=== PATIENT | female | born 1980 | race American Indian/Alaskan Native ===

== ENCOUNTER 2018-06-02 12:07 | Outpatient (CLI) | payer BC ==
--- NOTE | 2018-06-02 13:39 | Ultrasound Report ---
ULTRASOUND THYROID SCAN History: Nontoxic goiter. Technique: Grayscale ultrasound with color Doppler interrogation. Findings: The thyroid gland is borderline enlarged. The right lobe measures 5.1 x 1.7 x 1.9 cm. The left lobe measures 5.4 x 1.5 x 2.1 cm. The isthmus measures 0.2 cm. A 4 mm benign-appearing hypoechoic nodule is noted the superior right thyroid lobe. A similar-appearing 4 mm hypoechoic nodule is identified in the mid left thyroid gland. Impression: Borderline thyroid size. There are solitary tiny hypoechoic benign-appearing thyroid nodules bilaterally. No suspicious nodule. Consider surveillance.
== END 2018-06-02 12:08 | disposition home or self-care (01) ==
LOC: US 12:07
PROVIDERS: ATTEND Family Medicine
DX: E04.2 Nontoxic multinodular goiter (principal)
CPT/HCPCS: 76536

== ENCOUNTER 2020-02-26 08:59 | Outpatient (CLI) | payer BC ==
--- NOTE | 2020-02-26 10:14 | Ultrasound Report ---
ULTRASOUND ABDOMEN, COMPLETE INDICATION: Right upper quadrant pain. COMPARISON: None available. FINDINGS: Pancreas: Normal. Abdominal Aorta: Normal. IVC: Normal. Liver: Normal. Gallbladder: Mild gallbladder sludge versus artifact. Bile ducts: Normal. Common Bile Duct measures 3.1 mm. Right Kidney: Normal. Left Kidney: Normal. Spleen: Normal. Free fluid: None. Additional Findings: None. IMPRESSION: 1. Negative for gallstones or biliary dilatation. 2. Mild sludge versus artifact. Signer Name: Maximus Duncan MD Signed: 02/26/2020 10:10 AM Workstation Name: [id number]
== END 2020-02-26 09:00 | disposition home or self-care (01) ==
LOC: US 08:59
PROVIDERS: ATTEND Internal Medicine
DX: R10.9 Unspecified abdominal pain (principal)
CPT/HCPCS: 76700

== ENCOUNTER 2020-04-08 07:17 | Day surgery (SDC) | payer BC ==
[~2020-04-08 07:17] MED LIST: SODIUM CHLORIDE 0.9% 1000 ML 1,000 ML IV SCH
[2020-04-08] MEDS ORDERED: WATER FOR IRRIG STERILE 1,000 ML BOTTLE ONE (07:53)
--- NOTE | 2020-04-08 08:02 | Anesthesia Consultation ---
Anesthesia Consult and Med Hx Date of service: 04/08/20 - Airway Anesthetic Teeth Evaluation: Good ROM Head & Neck: Adequate Mental/Hyoid Distance: Adequate Mallampati Class: Class II Intubation Access Assessment: Probably Good - Pre-Operative Health Status ASA Pre-Surgery Classification: ASA1 Proposed Anesthetic Plan: MAC - Pulmonary Hx Smoking: No Hx Asthma: No Hx Respiratory Symptoms: No SOB: No COPD: No Home Oxygen Therapy: No Hx Pneumonia: No Hx Sleep Apnea: No - Cardiovascular System Hx Hypertension: No Hx Coronary Artery Disease: No Hx Heart Attack/AMI: No Hx Angina: No Hx Percutaneous Transluminal Coronary Angioplasty (PTCA): No Hx Cardia Arrhythmia: No Hx Pacemaker: No Hx Internal Defibrillator: No Hx Valvular Heart Disease: No Hx Heart Murmur: No Hx Peripheral Vascular Disease: No - Central Nervous System Hx Neuromuscular Disorder: No Hx Seizures: No CVA: No Hx Back Pain: No Hx Psychiatric Problems: No - Gastrointestinal Hx Ulcer: No Hx Gastroesophageal Reflux Disease: Yes (disphagea) - Endocrine Hx Renal Disease: No Hx End Stage Renal Disease: No Hx Cirrhosis: No Hx Liver Disease: No Hx Insulin Dependent Diabetes: No Hx Non-Insulin Dependent Diabetes: No Hx Thyroid Disease: No Hx Hypothyroidism: No Hx Hyperthyroidism: No - Hematic Hx Anemia: No Hx Sickle Cell Disease: No - Other Systems Hx Alcohol Use: No Hx Substance Use: No Hx Cancer: No Hx Obesity: Yes (BMI-36.5)
--- NOTE | 2020-04-08 08:03 | Anesthesia Day of Surgery ---
Anesthesia Day of Surgery - Day of Surgery Patient Examined: Yes Patient H&P Reviewed: Yes Patient is NPO: Yes
[2020-04-08] MEDS ORDERED: propofoL 200 MG/20 ML VIAL IV ONE (08:30)
[2020-04-08] MEDS ORDERED: LIDOCAINE MPF (2%) 20 MG/1 ML VIAL 5 ML ONE (08:30)
[2020-04-08] MEDS ORDERED: fentaNYL 100 MCG/2 ML INJ ONE (08:30)
--- NOTE | 2020-04-08 08:58 | Procedure Note ---
Date of procedure: 04/08/20 Pre-op diagnosis: GERD and Abdominal Pain Post-op diagnosis: other (Mild to Moderate Erosive Esophagitis/ R/O Eosinophilic Esophagatis/ Gastritis and Gastric Nodules/R/O Celica Disease/ No Peptic Ulcer disease noted) Procedure: EGD with Biopsy Anesthesia: [facility] [place] Surgeon: COLEEN AUGUSTIN Estimated blood loss: minimal Pathology: list Specimen disposition: to lab Condition: stable Disposition: same day (Treat with PPI and prn Bentyl and encourage Probiotic use. Avoid aspirin and NSAID for 4 days. Follow up in 1 to 2 weeks ([phone]).)
--- NOTE | 2020-04-08 09:04 | Operative Report ---
PROCEDURE: Esophagogastroduodenoscopy with biopsy. INDICATIONS: This is a 39-year-old, slightly obese -Spanish female with a history of NSAID use, prior history of GERD symptoms. She has lately been having some abdominal pain and discomfort. EGD was done to assess for the severity of the erosive esophagitis and for any associated peptic ulcer disease. DESCRIPTION OF PROCEDURE: The procedure was done after getting informed consent with MAC anesthesia. Instrument was passed through the hypopharynx into the esophagus, which showed [id number]-on-[id number] erosive esophagitis. Stomach showed gastritis and some gastric nodules. No ulcers were noted in the straight or the retroverted view. The pylorus was patent. The duodenum in the first and second portion appeared normal. Biopsy was done from the second part of the duodenum to rule out for celiac disease. Additional biopsy was done from the gastric antrum, gastric body to rule out for H. pylori and atrophic gastritis and also biopsy was done from the distal to mid esophagus to assess for the severity of erosive esophagitis and any eosinophilic esophagitis. There was minimal bleeding associated with the procedure. No complications associated with the procedure. ASSESSMENT: Gastroesophageal reflux disease symptoms, abdominal pain, mild to moderate erosive esophagitis, gastritis, gastric nodule, rule out celiac disease. PLAN: To treat the patient with PPI, p.r.n. dose of Bentyl. I have encouraged the patient to take probiotics. Avoid aspirin and aspirin-related products for the next few days and follow up in the office in 1-2 weeks' time. The procedure was done in the GI lab with assistance of the GI lab team, which included RN, Marilyn Munoz; Tiago jean baptiste and with the assistance of anesthesia. JOB# [id number] XANDER/NIKOLAS
[2020-04-08 10:39] VITALS: BP 134/90
--- NOTE | 2020-04-08 16:49 | Post Anesthesia Evaluation ---
- Post Anesthesia Evaluation Patient Participated: Yes Airway Patent: Yes Stable Respiratory Function: Yes Nausea/Vomiting: No Temp > 96.8F: Yes Pain Manageable: Yes Adequeate Hydration: Yes Anesthesia Complications: No
== END 2020-04-08 07:18 | disposition home or self-care (01) ==
LOC: GIO 07:17
DX: K21.00 Gastro-esophageal reflux disease with esophagitis, without bleeding (principal); R10.9 Unspecified abdominal pain; K29.70 Gastritis, unspecified, without bleeding; E66.9 Obesity, unspecified; Z79.899 Other long term (current) drug therapy; Z68.38 Body mass index [BMI] 38.0-38.9, adult
CPT/HCPCS: 43239; 88305; 88342; J2704; J3010; J7030

== ENCOUNTER 2020-07-11 07:42 | Outpatient (CLI) | payer BC ==
[2020-07-11 08:36] LABS: Blood Urea Nitrogen 11 mg/dL (7-17)
--- NOTE | 2020-07-11 09:42 | Cat Scan Report ---
CT PELVIS WITH CONTRAST HISTORY: Question of left-sided hydrosalpinx versus cystic mass on outside imaging, here for further evaluation. COMPARISON: None. I do not have any outside imaging available for comparison. TECHNIQUE: CT images of the pelvis were obtained following administration of intravenous contrast. A ll CT scans at this location are performed using CT dose reduction for ALARA by means of automated ex posure control. CONTRAST: 100 ml of intravenous contrast administered. FINDINGS: Pelvis: There is an 8 mm diameter somewhat tubular appearing fluid-filled structure in the left adne xal region with a small amount of surrounding simple free fluid. Otherwise the uterus and right ovary have a normal appearance. The left ovary is not well seen. No significant incidental soft tissue findings within the pelvis. A few shoddy inguinal lymph nodes a re noted but otherwise no pathologic adenopathy. No acute osseous abnormality or significant degenera tive change. IMPRESSION: 1. Small somewhat tubular appearing left adnexal structure could represent a hydrosalpinx with small amount of surrounding pelvic fluid. The fluid localizes to the left hemipelvis and may be partially l oculated; however, no defined/organized cystic structure or mass is visualized. COMMUNICATION: Time of Communication (TECHNICAL SALES ASSOCIATE/CDT): 8:37 AM Licensed Practitioner Receiving Report: Dr. Fitch Signer Name: Kalin Novak MD Signed: 07/11/2020 9:38 AM Workstation Name: [id number]
== END 2020-07-11 07:43 | disposition home or self-care (01) ==
LOC: CT 07:42
PROVIDERS: ATTEND Obstetrics & Gynecology
DX: R19.07 Generalized intra-abdominal and pelvic swelling, mass and lump (principal)
CPT/HCPCS: 36415; 72193; 82565; 84520; Q9967

== ENCOUNTER 2020-07-20 11:00 | Outpatient (CLI) | payer BC | END 2020-07-20 11:01 | disposition home or self-care (01) | LOC: SLR 11:00 | PROVIDERS: ATTEND Internal Medicine Critical Care Medicine | DX: G47.33 Obstructive sleep apnea (adult) (pediatric) (principal); E66.9 Obesity, unspecified; F51.01 Primary insomnia | CPT/HCPCS: G0399 ==